=== PATIENT | male | born 1955 | race Caucasian/White ===

== ENCOUNTER → 2019-12-01 | Outpatient (CLI) | payer OTHER ==
[~2019-12-01] MED LIST: AMBEREN; AMITRIPTYLINE H10 M1 PO; ASA5UEC PO; ASPIRIN EC81 M1 PO; BENICAR20 MG PO; CHROMIUM PICO400 MCG PO; CYCLOBENZAPRINE5 MG PO; EFFIENT10 MG PO; FAMCICLOVIR250 MG PO; FISH OIL 1,0001 EAC5 PO; GLUCOSAMINE-CH1 EA33 PO; GLUCOSAMINE-CH1 EA37; HEARTBURN RELIE75 MG PO; L-LYSINE500 M1 PO; NABUMETONE 750750 M1 PO; NORVASC 5 MG TAB5 MG PO; PRAVACHOL20 MG PO; PRILOSEC20 MG PO; PROBIOTIC1 EAC1 PO; SAW PALMETTO500 MG; VALACYCLOVIR500 MG PO; VITAMIN D3400 UNI2 PO; ZANTAC 150MG T150 M1; [UNRECOGNIZED DRUG - REMARK]
== END ==
LOC: SJCVCIMAG 14:50
DX: I10 Essential (primary) hypertension (principal)

== ENCOUNTER → 2021-06-17 | Outpatient (CLI) | payer OTHER | LOC: SJCVCIMAG 07:22 | PROVIDERS: ATTEND Internal Medicine Cardiovascular Disease | DX: I08.1 Rheumatic disorders of both mitral and tricuspid valves (principal); I27.20 Pulmonary hypertension, unspecified; I25.10 Atherosclerotic heart disease of native coronary artery without angina pectoris; E78.5 Hyperlipidemia, unspecified; I48.0 Paroxysmal atrial fibrillation ==